=== PATIENT | female | born 1935 | race Caucasian/White ===

== ENCOUNTER 2023-04-02 17:13 | Inpatient (IN) | payer MEDICARE ==
[2023-04-02] MEDS ORDERED: Dextrose 5% in Water 1,000 ML IV PRN (20:44)
[2023-04-02] MEDS ORDERED: Dextrose 50% Abboject 50 ML SYRINGE SLOW IVP PRN (20:44)
[2023-04-02] MEDS ORDERED: Ondansetron ODT 4 MG TAB PO PRN (20:45)
[2023-04-02] MEDS ORDERED: Acetaminophen 325 MG TAB PO PRN (20:45)
[2023-04-02 21:45] VITALS: BMI 26.6
[2023-04-02] MEDS: Magnesium Oxide 400 MG TAB PO SCH (21:58)
[2023-04-02] MEDS: Famotidine 20 MG TAB PO SCH (21:58)
[2023-04-03 04:41] LABS: #Eosinphils 0.5 thou/uL (0.0-0.7); #Lymphocytes 4.4 thou/uL (1.20-3.40); #Monocytes 0.9 thou/uL (0.11-0.59); #Neutrophils 7.9 thou/uL (1.40-6.50); %Basophils 0.3 % (0.0-1.0); %Lymphocytes 31.9 % (21.0-51.0); %Monocytes 6.7 % (0.0-10.0); %Neutrophils 57.2 % (42.0-75.0); Hemoglobin 9.7 g/dL (12.0-16.0); Mean Corpuscular HGB CONC 34.9 g/dL (32.0-36.0); Mean Corpuscular Hemoglobin 29.1 pg (27.0-31.0); Mean Corpuscular Volume 83.5 fl (78.0-98.0); Mean Platelet Volume 8.5 fL (7.4-10.4); Platelet Count 240 10x3/uL (130-400); RBC Distribution Width 16.3 % (11.5-14.5); Red Blood Cell (RBC) Count 3.33 mill/uL (4.20-5.40); White Blood Cell (WBC) Count 13.8 10x3/uL (4.8-10.8)
[2023-04-03 05:04] LABS: Anion Gap 15 mmol/L (10-20); BUN (Urea Nitrogen) 50 mg/dL (9.8-20.1); Calc. Creatinine Clearance 36 mL/min (70-130); Calcium 8.6 mg/dL (7.8-10.44); Carbon Dioxide 29 mmol/L (23-31); Chloride 98 mmol/L (98-107); Estimated GFR 47; Glucose 232 mg/dL (83-110); Potassium 4.1 mmol/L (3.5-5.1); Sodium 138 mmol/L (136-145)
[2023-04-03] MEDS: Atorvastatin Calcium 40 MG TAB PO SCH (10:01)
[2023-04-03] MEDS: Clopidogrel Bisulfate 75 MG TAB PO SCH (10:01)
[2023-04-03] MEDS: Lisinopril 20 MG TAB PO SCH (10:02)
[2023-04-03] MEDS: Potassium Chloride 20 MEQ TAB PO SCH (10:02)
[2023-04-03] MEDS: Insulin Glargine 30 UNITS/0.3 ML VIAL SC SCH (10:02)
[2023-04-03] MEDS: Furosemide 40 MG TAB PO SCH (10:02)
[2023-04-03] MEDS: Empagliflozin 25 MG TAB PO SCH (10:02)
[2023-04-03] MEDS: (Ubidecarenone [Co Q-10] 10 MG Capsule) PO SCH (12:08)
[2023-04-03] MEDS: Insulin Regular 300 UNITS/3 ML VIAL SC PRN ×2 (18:07→22:09)
[2023-04-03] MEDS: Famotidine 20 MG TAB PO SCH (22:04)
[2023-04-03] MEDS: Senokot S 8.6-50 MG TAB PO PRN (22:04)
[2023-04-03] MEDS: Magnesium Oxide 400 MG TAB PO SCH (22:05)
[2023-04-04] MEDS: Furosemide 40 MG TAB PO SCH (09:21)
[2023-04-04] MEDS: Atorvastatin Calcium 40 MG TAB PO SCH (09:21)
[2023-04-04] MEDS: Insulin Glargine 30 UNITS/0.3 ML VIAL SC SCH (09:21)
[2023-04-04] MEDS: Lisinopril 20 MG TAB PO SCH (09:21)
[2023-04-04] MEDS: Potassium Chloride 20 MEQ TAB PO SCH (09:21)
[2023-04-04] MEDS: Empagliflozin 25 MG TAB PO SCH (09:21)
[2023-04-04] MEDS: Clopidogrel Bisulfate 75 MG TAB PO SCH (09:21)
[2023-04-04] MEDS: (Ubidecarenone [Co Q-10] 10 MG Capsule) PO SCH (09:22)
[2023-04-04] MEDS: Insulin Regular 300 UNITS/3 ML VIAL SC PRN ×3 (11:48→23:08)
[2023-04-04] MEDS: cefTRIAXone\\ROCEPHIN 2 GM in Sodium Chloride 0.9% 100 ML IVPB SCH (17:08)
[2023-04-04] MEDS: Famotidine 20 MG TAB PO SCH (20:53)
[2023-04-04] MEDS: Magnesium Oxide 400 MG TAB PO SCH (20:53)
[2023-04-05] MEDS: Insulin Regular 300 UNITS/3 ML VIAL SC PRN ×4 (06:14→22:17)
[2023-04-05] MEDS: Lisinopril 20 MG TAB PO SCH (07:44)
[2023-04-05] MEDS: Furosemide 40 MG TAB PO SCH (07:44)
[2023-04-05] MEDS: Clopidogrel Bisulfate 75 MG TAB PO SCH (07:45)
[2023-04-05] MEDS: Atorvastatin Calcium 40 MG TAB PO SCH (07:45)
[2023-04-05] MEDS: Potassium Chloride 20 MEQ TAB PO SCH (07:45)
[2023-04-05] MEDS: Insulin Glargine 30 UNITS/0.3 ML VIAL SC SCH (07:45)
[2023-04-05] MEDS: Empagliflozin 25 MG TAB PO SCH (07:45)
[2023-04-05] MEDS: (Ubidecarenone [Co Q-10] 10 MG Capsule) PO SCH (07:48)
[2023-04-05] MEDS: Ipratropium/Albuterol 3 ML NEB EZPAP SCH ×3 (13:35→23:38)
[2023-04-05] MEDS: cefTRIAXone\\ROCEPHIN 2 GM in Sodium Chloride 0.9% 100 ML IVPB SCH (16:40)
[2023-04-05] MEDS: Famotidine 20 MG TAB PO SCH (20:15)
[2023-04-05] MEDS: Magnesium Oxide 400 MG TAB PO SCH (20:15)
[2023-04-06] MEDS: Insulin Regular 300 UNITS/3 ML VIAL SC PRN ×3 (06:40→16:56)
[2023-04-06] MEDS: Ipratropium/Albuterol 3 ML NEB EZPAP SCH ×4 (07:36→23:57)
[2023-04-06] MEDS: (Ubidecarenone [Co Q-10] 10 MG Capsule) PO SCH (07:54)
[2023-04-06] MEDS: Lisinopril 20 MG TAB PO SCH (08:06)
[2023-04-06] MEDS: Furosemide 40 MG TAB PO SCH (08:06)
[2023-04-06] MEDS: Empagliflozin 25 MG TAB PO SCH (08:06)
[2023-04-06] MEDS: Potassium Chloride 20 MEQ TAB PO SCH (08:06)
[2023-04-06] MEDS: Clopidogrel Bisulfate 75 MG TAB PO SCH (08:06)
[2023-04-06] MEDS: Atorvastatin Calcium 40 MG TAB PO SCH (08:06)
[2023-04-06] MEDS: Insulin Glargine 30 UNITS/0.3 ML VIAL SC SCH (08:24)
[2023-04-06 09:14] LABS: #Basophils 0.1 thou/uL (0.0-0.2); #Eosinphils 0.3 thou/uL (0.0-0.7); #Monocytes 1.1 thou/uL (0.11-0.59); #Neutrophils 10.4 thou/uL (1.40-6.50); %Basophils 0.6 % (0.0-1.0); %Eosinophils 2.1 % (0.0-10.0); %Lymphocytes 21.8 % (21.0-51.0); %Monocytes 7.2 % (0.0-10.0); %Neutrophils 66.9 % (42.0-75.0); Hemoglobin 9.7 g/dL (12.0-16.0); Mean Corpuscular Hemoglobin 25.9 pg (27.0-31.0); Mean Corpuscular Volume 86.4 fl (78.0-98.0); Mean Platelet Volume 10.7 fL (7.4-10.4); Platelet Count 310 10x3/uL (130-400); RBC Distribution Width 16.8 % (11.5-14.5); Red Blood Cell (RBC) Count 3.74 mill/uL (4.20-5.40); White Blood Cell (WBC) Count 15.5 10x3/uL (4.8-10.8)
[2023-04-06 10:13] LABS: Anion Gap 15 mmol/L (10-20); BUN (Urea Nitrogen) 46 mg/dL (9.8-20.1); Calc. Creatinine Clearance 31 mL/min (70-130); Calcium 8.5 mg/dL (7.8-10.44); Carbon Dioxide 25 mmol/L (23-31); Chloride 101 mmol/L (98-107); Estimated GFR 40; Glucose 270 mg/dL (83-110); Potassium 4.7 mmol/L (3.5-5.1); Sodium 136 mmol/L (136-145)
[2023-04-06] MEDS: cefTRIAXone\\ROCEPHIN 2 GM in Sodium Chloride 0.9% 100 ML IVPB SCH (14:04)
[2023-04-06] MEDS: Senokot S 8.6-50 MG TAB PO PRN (14:09)
[2023-04-06] MEDS: Famotidine 20 MG TAB PO SCH (20:44)
[2023-04-06] MEDS: Magnesium Oxide 400 MG TAB PO SCH (20:44)
[2023-04-07] MEDS: Insulin Regular 300 UNITS/3 ML VIAL SC PRN ×4 (01:29→16:23)
[2023-04-07] MEDS ORDERED: Ipratropium/Albuterol 3 ML NEB ONE (04:23)
[2023-04-07] MEDS: Ipratropium/Albuterol 3 ML NEB EZPAP SCH ×4 (07:17→23:45)
[2023-04-07] MEDS: Potassium Chloride 20 MEQ TAB PO SCH (08:42)
[2023-04-07] MEDS: Furosemide 40 MG TAB PO SCH (08:43)
[2023-04-07] MEDS: Clopidogrel Bisulfate 75 MG TAB PO SCH (08:43)
[2023-04-07] MEDS: Atorvastatin Calcium 40 MG TAB PO SCH (08:43)
[2023-04-07] MEDS: Empagliflozin 25 MG TAB PO SCH (08:43)
[2023-04-07] MEDS: Lisinopril 20 MG TAB PO SCH (08:44)
[2023-04-07] MEDS: Insulin Glargine 30 UNITS/0.3 ML VIAL SC SCH (08:44)
[2023-04-07] MEDS: (Ubidecarenone [Co Q-10] 10 MG Capsule) PO SCH (08:44)
[2023-04-07] MEDS: cefTRIAXone\\ROCEPHIN 2 GM in Sodium Chloride 0.9% 100 ML IVPB SCH (16:16)
[2023-04-07] MEDS: Magnesium Oxide 400 MG TAB PO SCH (21:00)
[2023-04-07] MEDS: Famotidine 20 MG TAB PO SCH (21:01)
[2023-04-08] MEDS: Insulin Regular 300 UNITS/3 ML VIAL SC PRN ×2 (06:03→12:14)
[2023-04-08] MEDS: Ipratropium/Albuterol 3 ML NEB EZPAP SCH ×2 (08:22→13:17)
[2023-04-08] MEDS: Insulin Glargine 30 UNITS/0.3 ML VIAL SC SCH (08:58)
[2023-04-08] MEDS: Furosemide 40 MG TAB PO SCH (08:58)
[2023-04-08] MEDS: Empagliflozin 25 MG TAB PO SCH (08:58)
[2023-04-08] MEDS: Clopidogrel Bisulfate 75 MG TAB PO SCH (08:58)
[2023-04-08] MEDS: Atorvastatin Calcium 40 MG TAB PO SCH (08:58)
[2023-04-08] MEDS: Lisinopril 20 MG TAB PO SCH (08:58)
[2023-04-08] MEDS: Potassium Chloride 20 MEQ TAB PO SCH (08:59)
[2023-04-08] MEDS: (Ubidecarenone [Co Q-10] 10 MG Capsule) PO SCH (09:00)
[2023-04-08 13:11] VITALS: TEMP 97.8
[2023-04-08] MEDS: cefTRIAXone\\ROCEPHIN 2 GM in Sodium Chloride 0.9% 100 ML IVPB SCH (16:18)
[2023-04-08 16:24] VITALS: BP 142/74
== END 2023-04-08 17:55 | disposition home or self-care (01) | DRG 193 ==
LOC: 2NO 20:16
PROVIDERS: ADMIT Internal Medicine; ATTEND Internal Medicine
DX: J18.9 Pneumonia, unspecified organism (principal); I50.33 Acute on chronic diastolic (congestive) heart failure; I13.0 Hypertensive heart and chronic kidney disease with heart failure and stage 1 through stage 4 chronic kidney disease, or unspecified chronic kidney disease; I48.20 Chronic atrial fibrillation, unspecified; N17.9 Acute kidney failure, unspecified; J98.11 Atelectasis; E11.22 Type 2 diabetes mellitus with diabetic chronic kidney disease; N18.30 Chronic kidney disease, stage 3 unspecified; J40 Bronchitis, not specified as acute or chronic; Y95 Nosocomial condition; Z87.01 Personal history of pneumonia (recurrent); Z79.899 Other long term (current) drug therapy; Z79.4 Long term (current) use of insulin; Z79.02 Long term (current) use of antithrombotics/antiplatelets
CPT/HCPCS: 36415; 36416; 71045; 74230; 80048; 85025; 94640; J0696; J1815; J3490; J7620

== ENCOUNTER 2024-09-29 10:55 | Inpatient (IN) | payer MEDICARE ==
[2024-09-29 11:42] LABS: #Basophils 0.03 10x3/uL (0.0-0.2); %Basophils 0.3 % (0.0-1.0); %Eosinophils 1.8 % (0.0-10.0); %Lymphocytes 28.9 % (21.0-51.0); %Monocytes 5.8 % (0.0-10.0); %Neutrophils 62.6 % (42.0-75.0); Hematocrit 32.5 % (36.0-47.0); Hemoglobin 9.9 g/dL (12.0-16.0); Mean Corpuscular HGB CONC 30.5 g/dL (32.0-36.0); Mean Corpuscular Hemoglobin 25.6 pg (27.0-31.0); Mean Platelet Volume 10.2 fL (7.4-10.4); Platelet Count 165 10x3/uL (130-400); RBC Distribution Width 15.3 % (11.5-14.5); Red Blood Cell (RBC) Count 3.87 mill/uL (4.20-5.40)
[2024-09-29 11:56] LABS: INR-International Normal Ratio 1.2; PTT 31.7 sec (22.9-36.1); Prothrombin Time 15.6 sec (12.0-14.7)
[2024-09-29] MEDS ORDERED: Heparin 10,000 UNITS/ 10 ML VIAL ONE (11:59)
[2024-09-29 12:01] LABS: ALT (SGPT) 17 U/L (8-55); AST (SGOT) 16 U/L (5-34); Alkaline Phosphatase 89 U/L (40-110); Anion Gap 13 mmol/L (10-20); BUN (Urea Nitrogen) 32 mg/dL (9.8-20.1); Bilirubin, Total 0.7 mg/dL (0.2-1.2); Calc. Creatinine Clearance 0 mL/min (70-130); Calcium 8.1 mg/dL (7.8-10.44); Carbon Dioxide 23 mmol/L (23-31); Chloride 104 mmol/L (98-107); Estimated GFR 64; Globulin 2.3 g/dL (2.4-3.5); Glucose 171 mg/dL (83-110); Potassium 4.3 mmol/L (3.5-5.1); Protein, Total 5.3 g/dL (5.8-8.1); Sodium 136 mmol/L (136-145)
[2024-09-29] MEDS ORDERED: hydrALAZINE 20 MG/ML VIAL ONE (12:04)
[2024-09-29 12:05] LABS: Troponin I Less than 0.010 ng/mL (< 0.028)
[2024-09-29] MEDS ORDERED: Etomidate 40 MG (20 mL) VIAL ONE (12:10)
[2024-09-29] MEDS ORDERED: ePHEDrine Sulfate 50 MG/10 ML VIAL ONE (12:28)
[2024-09-29] MEDS ORDERED: SUCCINYLCHOLINE/SOD CL,ISO/PF 200 MG/10 ML SYRINGE FS ONE (12:28)
[2024-09-29] MEDS ORDERED: Ondansetron PF 4 MG/2 ML Vial ONE (12:28)
[2024-09-29] MEDS ORDERED: PROPOFOL 200 MG/20 ML VIAL ONE (12:28)
[2024-09-29] MEDS ORDERED: Dexamethasone 20 MG/5 ML VIAL ONE (12:28)
[2024-09-29] MEDS ORDERED: PHENYLEPHRINE-NS 100 MCG/ML 10 ML SYRINGE ONE (12:28)
[2024-09-29] MEDS ORDERED: Rocuronium Bromide 10 MG/ML (10ML VIAL) ONE (12:28)
[2024-09-29] MEDS ORDERED: SUGAMMADEX SODIUM 200 MG/2 ML VIAL ONE (13:17)
[2024-09-29] MEDS ORDERED: Iopamidol-370 76% 500 ML MDV (1 ML CHARGE) ONE ×2 (14:20→14:27)
[2024-09-29 14:38] LABS: Troponin I Less than 0.010 ng/mL (< 0.028)
[2024-09-29] MEDS: Sodium Chloride 0.9% 500 ML IV SCH (15:45)
[2024-09-29 15:53] VITALS: BMI 27.7
[2024-09-29 17:28] LABS: Troponin I Less than 0.010 ng/mL (< 0.028)
[2024-09-29] MEDS ORDERED: Acetaminophen 650 MG Suppository PR PRN (20:08)
[2024-09-29] MEDS ORDERED: Glucagon 1 MG/ML KIT IM PRN (20:11)
[2024-09-29] MEDS ORDERED: Insulin Lispro 100 UNIT/ML 10 ML VIAL SC PRN (20:11)
[2024-09-29] MEDS ORDERED: Dextrose 50% Abboject 50 ML SYRINGE SLOW IVP PRN (20:11)
[2024-09-29] MEDS ORDERED: Dextrose 5% in Water 1,000 ML IV PRN (20:11)
[2024-09-30 07:09] LABS: Cardiac Risk 2.9 (Less than 4.5)
[2024-09-30] MEDS: Aspirin 300 MG Suppository PR SCH (07:55)
[2024-09-30] MEDS ORDERED: FLU (Fluad Triv) TS24-25 (65UP)/MF59C/PF 45 MCG/0.5 ML Syringe IM ONE (09:00)
[2024-10-01] MEDS: Labetalol HCl 100 MG/20 ML VIAL SLOW IVP PRN (03:25)
[2024-10-01] MEDS: Sodium Chloride 0.9% 1,000 ML IV SCH (03:25)
[2024-10-01 05:13] LABS: Hematocrit 27.9 % (36.0-47.0); Hemoglobin 8.7 g/dL (12.0-16.0); Mean Corpuscular HGB CONC 31.2 g/dL (32.0-36.0); Mean Corpuscular Hemoglobin 25.9 pg (27.0-31.0); Platelet Count 204 10x3/uL (130-400); RBC Distribution Width 16.2 % (11.5-14.5); Red Blood Cell (RBC) Count 3.36 mill/uL (4.20-5.40)
[2024-10-01 05:53] LABS: Lymphocytes 27 % (21-51); Monocytes 7 % (0-10); Neutrophil 67 % (42-75); Platelet Adequacy Comment Platelets Normal; RBC Morphology Within Normal Limits; Smudge Cells 16.7 %
[2024-10-01 06:21] LABS: ALT (SGPT) 15 U/L (8-55); AST (SGOT) 20 U/L (5-34); Alkaline Phosphatase 83 U/L (40-110); Anion Gap 17 mmol/L (10-20); BUN (Urea Nitrogen) 24 mg/dL (9.8-20.1); Bilirubin, Total 1.5 mg/dL (0.2-1.2); Calc. Creatinine Clearance 51 mL/min (70-130); Calcium 8.5 mg/dL (7.8-10.44); Carbon Dioxide 20 mmol/L (23-31); Chloride 113 mmol/L (98-107); Estimated GFR 64; Globulin 2.5 g/dL (2.4-3.5); Glucose 162 mg/dL (83-110); Protein, Total 5.5 g/dL (5.8-8.1); Sodium 146 mmol/L (136-145)
[2024-10-01] MEDS: hydrALAZINE 20 MG/ML VIAL SLOW IVP PRN (12:31)
[2024-10-01 12:35] VITALS: BP 195/75
[2024-10-01 12:37] VITALS: TEMP 97.5
[2024-10-01] MEDS: Scopolamine 1 mg/72 hour Patch TD SCH (14:56)
[2024-10-01] MEDS: Morphine 2 MG/ML VIAL SLOW IVP PRN (16:44)
[2024-10-01] MEDS: Lorazepam 2 MG/ML VIAL SLOW IVP PRN (16:46)
== END 2024-10-01 17:04 | disposition hospice, inpatient (51) | DRG 65 ==
LOC: ERS 10:55 → CCU 12:17 → 2SE 10-01 11:49
PROVIDERS: ADMIT Internal Medicine; ATTEND Internal Medicine
PROC: B31R1ZZ Fluoroscopy of Intracranial Arteries using Low Osmolar Contrast (ICD-10-PCS; principal; 2024-09-29)
PROC: 3E033XZ Introduction of Vasopressor into Peripheral Vein, Percutaneous Approach (ICD-10-PCS; 2024-09-29)
DX: I63.311 Cerebral infarction due to thrombosis of right middle cerebral artery (principal); G81.94 Hemiplegia, unspecified affecting left nondominant side; I50.32 Chronic diastolic (congestive) heart failure; I48.0 Paroxysmal atrial fibrillation; R29.810 Facial weakness; I11.0 Hypertensive heart disease with heart failure; Z66 Do not resuscitate; R47.1 Dysarthria and anarthria; I25.10 Atherosclerotic heart disease of native coronary artery without angina pectoris; E11.65 Type 2 diabetes mellitus with hyperglycemia; Z98.890 Other specified postprocedural states; Z82.49 Family history of ischemic heart disease and other diseases of the circulatory system
CPT/HCPCS: 0042T; 36415; 36416; 70450; 70496; 70498; 71045; 80053; 80061; 84484; 85025; 85347; 85610; 85730; 93005; 96374; C1769; C1887; C1894; J0360; J1100; J1644; J2060; J2272; J2405; J2704; J7030; Q9967

== ENCOUNTER 2024-10-01 17:07 | Inpatient (IN) | payer OTHER ==
[~2024-10-01 17:07] MED LIST: Iopamidol 370 76% 100 ML VIAL ONE
[2024-10-01] MEDS ORDERED: Bisacodyl 10 MG SUPP PR PRN (17:37)
[2024-10-01 17:44] VITALS: BMI 24.2
[2024-10-01] MEDS ORDERED: diphenhydrAMINE 50 MG/ML VIAL IVP PRN (17:45)
[2024-10-01] MEDS ORDERED: Ondansetron PF 4 MG/2 ML Vial IVP PRN (17:45)
[2024-10-01] MEDS ORDERED: Haloperidol Lactate 5 MG/ML VIAL SLOW IVP PRN (17:45)
[2024-10-01] MEDS ORDERED: Hyoscyamine SL 0.125 MG TAB SL PRN (17:45)
[2024-10-01] MEDS ORDERED: Acetaminophen 650 MG Suppository PR PRN (17:45)
[2024-10-01] MEDS: Morphine 2 MG/ML VIAL SLOW IVP SCH ×2 (18:11→20:35)
[2024-10-01] MEDS: Lorazepam 2 MG/ML VIAL SLOW IVP SCH ×2 (18:11→20:36)
[2024-10-02 08:42] VITALS: BP 180/79; TEMP 98.8
[2024-10-02] MEDS: Lorazepam 2 MG/ML VIAL SLOW IVP PRN ×2 (09:45→11:35)
[2024-10-02] MEDS: Morphine 2 MG/ML VIAL SLOW IVP PRN ×2 (09:45→11:35)
[2024-10-02] MEDS ORDERED: Lorazepam 2 MG/ML VIAL SLOW IVP PRN (10:13)
[2024-10-02] MEDS ORDERED: Morphine 2 MG/ML VIAL SLOW IVP PRN (10:14)
== END 2024-10-02 20:15 | disposition expired | DRG 951 ==
LOC: 2SE 17:07 → MSONC 17:37
PROVIDERS: ADMIT Internal Medicine Nephrology; ATTEND Internal Medicine Nephrology
DX: Z51.5 Encounter for palliative care (principal); I50.32 Chronic diastolic (congestive) heart failure; I66.01 Occlusion and stenosis of right middle cerebral artery; I11.0 Hypertensive heart disease with heart failure; E11.9 Type 2 diabetes mellitus without complications; I48.0 Paroxysmal atrial fibrillation; I25.10 Atherosclerotic heart disease of native coronary artery without angina pectoris; Z66 Do not resuscitate; Z53.8 Procedure and treatment not carried out for other reasons
CPT/HCPCS: 36215; J2060; J2272